=== PATIENT | female | born 1935 | race Caucasian/White ===

== ENCOUNTER 2016-09-11 16:17 | Emergency (ER) | payer MEDICARE, OTHER ==
[~2016-09-11] VITALS: Ht 167.6 cm; Wt 57.0 kg
[2016-09-11 16:46] VITALS: BP 138/110; PULSE 52; RESP 17; TEMP 97.6; O2SAT 96
[2016-09-11 16:55] VITALS: BP 138/110; PULSE 52; RESP 17; TEMP 97.6; O2SAT 96
[2016-09-11 17:02] VITALS: BP 166/78; PULSE 52
--- NOTE | 2016-09-11 17:04 | PD ---
HPI Chief Complaint: Edema Time Seen by Provider: 16:56 Travel History International Travel<30 days: No Contact w/Intl Traveler<30days: No Traveled to known affect area: No History of Present Illness HPI 81- year old female brought in by [facility] for fluid in abdomen. The patient has Alzheimer's and Dementia and does not verbally communicate very much per patient 's daughters. Per [facility] the patient's daughter noticed that patient's stomach was distended. When they called the patient's primary care, they were told to bring her into the ER for further testing. The daughter states the patient has been distended for about a week, and it has been worsening. The daughter states that last night the patient was okay with her touching her stomach, but this morning the patient pushed her away. They report other than her Alzheimer's and Dementia her only other medical condition is hypotension. Prior abdominal surgeries include hysterectomy and appendectomy. Per daughter she is not on any medications and has not had any episodes like this before. The daughters deny that the mother has ever been a smoker. PFSH Past Medical History Dementia: Yes Diminished Hearing: No Musculoskeletal: Yes (CURVATURE OF THE SPINE) Past Surgical History Appendectomy: Yes Hysterectomy: Yes Oral Surgery: Yes (bottom teeth removed ) Social History Alcohol Use: No Tobacco Use: No Substance Use: No Allergies-Medications (Allergen,Severity, Reaction): Coded Allergies: Penicillin (Verified Allergy, Severe, Anaphylaxis, 09/11/16) Reported Meds & Prescriptions Reported Meds & Active Scripts Active No Active Prescriptions or Reported Medications Review of Systems ROS Limitations: Poor Historian, Other: (Alzheimer's and Dementia ) General / Constitutional: No: Fever, Chills, Weight Gain, Weight Loss, Other Eyes: No: Diploplia, Blurred Vision, Photophobia, Drainage, Redness, Foreign Body Sensation, Pain, Tearing, Blind Spots, Visual changes, Blindness, Other HENT: No: Headaches, Vertigo, Lightheadedness, Sore Throat, Rhinitis, Rhinorrhea, Congestion, Nosebleed, Neck Stiffness, Neck Pain, Masses, Gingival Bleeding, Dental Difficulties, Ear Discharge, Earache, Other Cardiovascular: No: Chest Pain or Discomfort, Palpitations, Irregular Rhythm, Tachycardia, Diaphoresis, Syncope, Dyspnea on exertion, Varicosities, Edema, Cyanosis, Varicosities, Phlebitis, Claudication, Other Respiratory: No: Cough, Shortness of Breath, Wheezing, Sneezing, Orthopnea, Hemoptysis, Stridor, Night Sweats, Pleuritic Pain, Other Gastrointestinal: Positive: Abdominal Pain, No: Nausea, Vomiting, Diarrhea, Hematemesis, Hematochezia, Constipation, Changes in Bowel Habits, Indigestion, Dysphagia, Loss of Appetite, Other Genitourinary: No: Urgency, Frequency, Dysuria, Nocturia, Hematuria, Decreased Urinary Output, Oliguria, Hesitancy, Dribbling, Incontinence, Pelvic Pain, Flank Pain, Dyspareunia, Discharge, Dysmenorrhea, Menorrhagia, Metorrhagia, Vaginal Bleeding, Other Musculoskeletal: No: Myalgias, Arthralgias, Limited ROM, Weakness, Cramping, Edema, Pain, Atrophy, Other Skin: No Rash, No Itching, No Dryness, No Lumps, No Hives, No Change in Pigmentation, No Change in nails, No Alopecia, No Lesions, No Breast Lumps, No Breast Tenderness, No Breast Swelling, No Other Neurologic: No: Weakness, Dizziness, Syncope, Focal Abnormalities, Coordination Problem, Tremor, Ataxia, Headache, Change in Mentation, Slurred Speech, Paresthesia, Incontinence, Seizures, Sensory Disturbance, Other Psychiatric: No: Anxiety, Depression, Suicidal Ideations, Disorder of Thought, Mood Disorder, Substance Abuse, Homicidal Ideation, Other Endocrine: No: Heat Intolerance, Cold Intolerance, Polyuria, Polydipsia, Other Hematologic/Lymphatic: No: Easy Bruising, Lymph Node Enlargement, Other Physical Exam Narrative GENERAL: SKIN: Warm and dry. HEAD: Atraumatic. Normocephalic. EYES: Pupils equal and round. No scleral icterus. No injection or drainage. ENT: No nasal bleeding or discharge. Mucous membranes pink and moist. NECK: Trachea midline. No JVD. CARDIOVASCULAR: Regular rate and rhythm. Tongue is midline. No uvula deviation. RESPIRATORY: No accessory muscle use. Clear to auscultation. Breath sounds equal bilaterally. GASTROINTESTINAL: Abdomen distended, hard, non-tender to palpation. Hepatic and splenic margins not palpable. MUSCULOSKELETAL: Extremities without clubbing, cyanosis, or edema. No obvious deformities. NEUROLOGICAL: Awake and alert. No obvious cranial nerve deficits. Motor grossly within normal limits. Five out of 5 muscle strength in the arms and legs. Normal speech. PSYCHIATRIC: Appropriate mood and affect; insight and judgment limited. Data Data Last Documented VS Vital Signs Date Time Temp Pulse Resp B/P Pulse Ox O2 Delivery O2 Flow Rate FiO2 09/11/16 19:05 51 12 145/67 99 Room Air 09/11/16 16:55 97.6 Orders Complete Blood Count With Diff (09/11/16 16:48) Comprehensive Metabolic Panel (09/11/16 16:48) Lipase (09/11/16 16:48) Lactic Acid (09/11/16 16:48) Prothrombin Time / Inr (Pt) (09/11/16 16:48) Act Partial Throm Time (Ptt) (09/11/16 16:48) Urinalysis - C+S If Indicated (09/11/16 16:48) Iv Access Insert/Monitor (09/11/16 16:48) Ecg Monitoring (09/11/16 16:48) Ammonia (09/11/16 16:48) Ct Abd/Pel W Iv Contrast(Rout) (09/11/16 ) Cath For Specimen (09/11/16 17:04) Urinary Catheter Insert/Apply (09/11/16 17:28) Sodium Chlor 0.9% 1000 Ml Inj (Ns 1000 M (09/11/16 18:28) Labs Laboratory Tests Test 09/11/16 17:13 White Blood Count 6.6 TH/MM3 Red Blood Count 4.66 MIL/MM3 Hemoglobin 10.9 GM/DL Hematocrit 33.4 % Mean Corpuscular Volume 71.8 FL Mean Corpuscular Hemoglobin 23.4 PG Mean Corpuscular Hemoglobin 32.6 % Concent Red Cell Distribution Width 14.8 % Platelet Count 139 TH/MM3 Mean Platelet Volume 10.1 FL Neutrophils (%) (Auto) 71.5 % Lymphocytes (%) (Auto) 19.1 % Monocytes (%) (Auto) 8.2 % Eosinophils (%) (Auto) 0.5 % Basophils (%) (Auto) 0.7 % Neutrophils # (Auto) 4.7 TH/MM3 Lymphocytes # (Auto) 1.3 TH/MM3 Monocytes # (Auto) 0.5 TH/MM3 Eosinophils # (Auto) 0.0 TH/MM3 Basophils # (Auto) 0.0 TH/MM3 CBC Comment DIFF FINAL Differential Comment Prothrombin Time 10.7 SEC Prothromb Time International 1.0 RATIO Ratio Activated Partial 29.6 SEC Thromboplast Time Urine Color YELLOW Urine Turbidity CLEAR Urine pH 6.0 Urine Specific [place] 1.006 Urine Protein NEG mg/dL Urine Glucose (UA) NEG mg/dL Urine Ketones NEG mg/dL Urine Occult Blood NEG Urine Nitrite NEG Urine Bilirubin NEG Urine Urobilinogen LESS THAN 2.0 MG/DL Urine Leukocyte Esterase NEG Urine WBC LESS THAN 1 /hpf Microscopic Urinalysis Comment CULT NOT INDICATED Sodium Level 130 MEQ/L Potassium Level 4.2 MEQ/L Chloride Level 95 MEQ/L Carbon Dioxide Level 28.7 MEQ/L Anion Gap 6 MEQ/L Blood Urea Nitrogen 11 MG/DL Creatinine 0.54 MG/DL Estimat Glomerular Filtration 108 ML/MIN Rate Random Glucose 146 MG/DL Lactic Acid Level 1.5 mmol/L Calcium Level 8.5 MG/DL Total Bilirubin 0.5 MG/DL Aspartate Amino Transf 14 U/L (AST/SGOT) Alanine Aminotransferase 10 U/L (ALT/SGPT) Alkaline Phosphatase 63 U/L Ammonia LESS THAN 10 MCMOL/L Total Protein 6.7 GM/DL Albumin 3.5 GM/DL Lipase 123 U/L [facility] Medical Decision Making Medical Screen Exam Complete: Yes Emergency Medical Condition: Yes Medical Record Reviewed: Yes Interpretation(s) CBC & BMP Diagram 09/11/16 17:13 LFTs and lipase WNL Last Impressions Abdomen/Pelvis CT 09/11/16 0000 Signed Impressions: Service Date/Time: Sunday, September 11, 2016 20:24 - CONCLUSION: 1. Prominent amount of stool in the rectum, distended to over 10 cm in length suggesting possible fecal impaction. There is also stool scattered throughout the remainder of the colon. No dilated loops of small bowel. 2. Abnormal appearance to the floor on the left side with lobular masslike pleural thickening and irregular enhancement. 3. Small right pleural effusion. 4. Marked dilation of the left kidney collecting system and extrarenal pelvis. There are no calcified stones seen. Symmetric nephrogram. Cannot exclude renal obstruction. Recommend followup assessment after the fecal impaction resolves. 5. Abnormal appearance to the lesser sac with both free fluid and an elongated area of fluid with enhancing wall. Sergei Jonas MD Differential Diagnosis Ascites Obstruction Abdominal mass Narrative Course 81-year-old female that presents to the ED for evaluation of abdominal distention. Patient was properly examined and was found to have signs and symptoms which appear to be unclear etiology. Patient was put on a urinary catheter and she had about 1 L of fluid coming out. Connolly was placed and she has another liter come out. Complete resolution of the abdominal distention noted. Imaging and labs were ordered after my attending recommended imaging. Imaging did show what appears to be a fecal impaction. Case was discussed with my attending Dr. Uriostegui who recommended trial of fecal disimpaction. After explained this to the family and patient and they agreed to it fecal disimpaction was done by me with minimal stool obtained. Does appear to be hard but not completely hard for the patient not pass it. At this time I recommend trial of MiraLAX and enemas [id number]. Family is very aware of this and they agree with using this. At this time patient will be allowed to keep the Connolly and I recommend in 2 days to come back to get the Connolly removed. Patient and family agree with this. Patient was sent home with prescription for Bactrim for infection prophylaxis. Patient was given prescription for MiraLAX as well. Close follow-up with PCP. See ED worsening symptoms. Diagnosis Primary Impression: Acute urinary retention Additional Impression: Fecal impaction in rectum Patient Instructions: General Instructions Additional Instructions: Take medication as prescribed. Follow with PCP. See ED for worsening symptoms. Use an [id number] to help with the impaction. Med/Other Pt SpecificInfo: Prescription(s) given Scripts No Active Prescriptions or Reported Meds Disposition: 01 DISCHARGE HOME Condition: Stable Berto Flores Sep 11, 2016 17:04
[2016-09-11 17:45] LABS: AUTOMATED NEUTROPHIL # 4.7 TH/MM3 (1.8-7.7); BASOPHIL % 0.7 % (0.0-2.0); EOSINOPHIL % 0.5 % (0.0-4.0); HEMATOCRIT 33.4 % (35.0-46.0); HEMO FLAGS DIFF FINAL; LYMPH % 19.1 % (9.0-44.0); LYMPHOCYTE # 1.3 TH/MM3 (1.0-4.8); MEAN CELL VOLUME 71.8 FL (80.0-100.0); MEAN CORPUSCULAR HEMOGLOBIN 23.4 PG (27.0-34.0); MEAN CORPUSCULAR HGB CONC 32.6 % (32.0-36.0); MONO % 8.2 % (0.0-8.0); NEUT % 71.5 % (16.0-70.0); PLATELET COUNT 139 TH/MM3 (150-450); RED BLOOD COUNT 4.66 MIL/MM3 (4.00-5.30); RED CELL DISTRIBUTION WIDTH 14.8 % (11.6-17.2); WHITE BLOOD COUNT 6.6 TH/MM3 (4.0-11.0)
[2016-09-11 17:51] LABS: APTT (PATIENT) 29.6 SEC (24.3-30.1); PROTHROMBIN TIME - PATIENT 10.7 SEC (9.8-11.6)
[2016-09-11 18:06] LABS: ANION GAP 6 MEQ/L (5-15); AST (GOT) 14 U/L (15-37); BICARBONATE 28.7 MEQ/L (21.0-32.0); BLOOD UREA NITROGEN 11 MG/DL (7-18); CHLORIDE 95 MEQ/L (98-107); GLOMERULAR FILTRATION RATE 108 ML/MIN (>89); POTASSIUM 4.2 MEQ/L (3.5-5.1); SODIUM (NA) 130 MEQ/L (136-145)
[2016-09-11 18:07] LABS: ALT (GPT) 10 U/L (10-53)
[2016-09-11 18:09] LABS: BLOOD, URINE NEG (NEG); COMMENT (UR) CULT NOT INDICATED; CULTURE IF INDICATED CULT NOT INDICATED; GLUCOSE,URINE NEG (NEG); KETONE, URINE NEG (NEG); NITRITE,URINE NEG (NEG); URINE COLOR YELLOW (YELLW/STRAW)
[2016-09-11 18:10] LABS: ALKALINE PHOSPHATASE 63 U/L (45-117); TOTAL BILIRUBIN ADULT 0.5 MG/DL (0.2-1.0)
[2016-09-11] MEDS ORDERED: SODIUM CHLOR 0.9% 1000 ML INJ 1,000 ML IV SCH (18:28)
[2016-09-11 19:05] VITALS: BP 145/67; PULSE 51; RESP 12; O2SAT 99
[2016-09-11] MEDS ORDERED: IOHEXOL 350 MG/ML 10 ML VIAL (for RAD DIAG) IV ONE (20:24)
--- NOTE | 2016-09-11 21:12 | RADRPT ---
EXAM DATE/TIME: 09/11/2016 20:24 [facility] COMPARISON: No previous studies available for comparison. INDICATIONS : Abdominal pain. IV CONTRAST: 85 cc Omnipaque 350 (iohexol) IV ORAL CONTRAST: No oral contrast ingested. RADIATION DOSE: 6.64 CTDIvol (mGy) MEDICAL HISTORY : Dementia. SURGICAL HISTORY : Appendectomy. Hysterectomy. ENCOUNTER: Initial ACUITY: 1 day PAIN SCALE: Non-responsive LOCATION: abdomen TECHNIQUE: Volumetric scanning of the abdomen and pelvis was performed. Using automated exposure control and ad justment of the mA and/or kV according to patient size, radiation dose was kept as low as reasonably achievable to obtain optimal diagnostic quality images. DICOM format image data is available electro nically for review and comparison. FINDINGS: LOWER LUNGS: Small right pleural effusion and compressive atelectasis of the adjacent lung. Abnormal appearance t o the pleura in the left lower chest with lobular areas of pleural thickening measuring up to 1.9 cm and having a heterogeneous pattern of enhancement. No infiltrates seen in the left lower lobe. LIVER: Homogeneous density without lesion. There is no dilation of the biliary tree. No calcified gallston es. SPLEEN: Normal size without lesion. PANCREAS: The pancreas appears grossly intact. However, there is a prominent amount of fluid in the anterior p ararenal space and, as seen on image #23, a focal fluid collection which measures 2.8 x 1.1 cm locate d within the lesser sac. KIDNEYS: Symmetric enhancement in the parenchyma of both kidneys. No calcified stones on either side. There is marked prominence of the collecting system an extrarenal pelvis on the left side. The ureter willie ot be followed distal to the level of L2. There is a cortical cyst exophytic from the upper pole lef t kidney measuring 3.5 cm. ADRENAL GLANDS: Within normal limits. VASCULAR: There is no aortic aneurysm. BOWEL/MESENTERY: There is a prominent amount of stool in the rectum with the rectum measuring in excess of 10 cm in wi dth. There is only a mild amount of stool seen throughout the left colon, moderate in the transverse colon, and moderate in the right colon. No dilated loops of small bowel seen. ABDOMINAL WALL: Within normal limits. RETROPERITONEUM: There is no lymphadenopathy. BLADDER: Connolly catheter within nondistended urinary bladder. The urinary bladder is displaced anterior and leal prapubic probably due to the fecal impaction. REPRODUCTIVE: Within normal limits. INGUINAL: There is no lymphadenopathy or hernia. MUSCULOSKELETAL: Diffuse osteopenia. CONCLUSION: 1. Prominent amount of stool in the rectum, distended to over 10 cm in length suggesting possible fec al impaction. There is also stool scattered throughout the remainder of the colon. No dilated loops of small bowel. 2. Abnormal appearance to the floor on the left side with lobular masslike pleural thickening and irr egular enhancement. 3. Small right pleural effusion. 4. Marked dilation of the left kidney collecting system and extrarenal pelvis. There are no calcifie d stones seen. Symmetric nephrogram. Cannot exclude renal obstruction. Recommend followup assessme nt after the fecal impaction resolves. 5. Abnormal appearance to the lesser sac with both free fluid and an elongated area of fluid with enh ancing wall. Sergei Jonas MD on September 11, 2016 at 21:02 Board Certified Radiologist. This report was verified electronically.
[2016-09-11] MEDS ORDERED: MIRA3350 PO (21:47)
[2016-09-11] MEDS ORDERED: BACT800T5 PO (21:47)
[2016-09-11 22:07] VITALS: BP 154/74
== END 2016-09-11 23:02 | disposition home or self-care (01) ==
LOC: NEPC 16:17
DX: R33.8 Other retention of urine (principal); K56.41 Fecal impaction; G30.9 Alzheimer's disease, unspecified; F02.80 Dementia in other diseases classified elsewhere, unspecified severity, without behavioral disturbance, psychotic disturbance, mood disturbance, and anxiety
CPT/HCPCS: 51702; 74177; 80053; 81001; 82140; 83605; 83690; 85025; 85610; 85730; 96360; 99285; J7030; Q9967

== ENCOUNTER 2017-02-17 10:11 | Inpatient (IN) | payer MEDICARE ==
[~2017-02-17 10:11] MED LIST: BACT800T5 PO; MIRA3350 PO
[2017-02-17 10:31] VITALS: BP 136/81; PULSE 61; RESP 16; TEMP 98.6; O2SAT 99
[2017-02-17 12:10] LABS: AUTOMATED NEUTROPHIL # 3.8 TH/MM3 (1.8-7.7); BASOPHIL % 0.6 % (0.0-2.0); EOSINOPHIL % 0.6 % (0.0-4.0); HEMATOCRIT 33.6 % (35.0-46.0); HEMOGLOBIN 10.9 GM/DL (11.6-15.3); LYMPH % 23.6 % (9.0-44.0); LYMPHOCYTE # 1.3 TH/MM3 (1.0-4.8); MEAN CELL VOLUME 73.6 FL (80.0-100.0); MEAN CORPUSCULAR HGB CONC 32.6 % (32.0-36.0); MEAN PLATELET VOLUME 10.6 FL (7.0-11.0); MONO % 6.9 % (0.0-8.0); MONOCYTE # 0.4 TH/MM3 (0-0.9); NEUT % 68.3 % (16.0-70.0); PLATELET COUNT 189 TH/MM3 (150-450); RED BLOOD COUNT 4.56 MIL/MM3 (4.00-5.30); RED CELL DISTRIBUTION WIDTH 13.6 % (11.6-17.2); WHITE BLOOD COUNT 5.6 TH/MM3 (4.0-11.0)
[2017-02-17] MEDS ORDERED: SODIUM CHLORID 0.9% 500 ML INJ 500 ML IV ONE (12:15)
--- NOTE | 2017-02-17 12:15 | PD ---
HPI Chief Complaint: Altered Mental Status Time Seen by Provider: 11:13 Travel History International Travel<30 days: No Contact w/Intl Traveler<30days: No Traveled to known affect area: No History of Present Illness HPI 81-year-old female that presents to the ED for evaluation of altered mental status. Patient has a chronic history of dementia and is normally confused but per family members and and was reported she's been more confused lately. She has a Connolly catheter and then noticed that the urine has been darker and our smell to it. Patient comes here to get evaluated. Patient herself cannot give me any history. She for the most part answers by moans and doesn't really say much. She does have a significant history of dementia has been here in the past for similar. Per family are concerned more about possible UTI. No signs of fall or injury. Again history is limited because patient is not a good historian. Family portion at the time of evaluation is not bedsides some most of the history was obtained from ED nurse to obtain report from ambulance report to provided familys report. Patient denies any pain and denies any acute abnormality. Unclear as to the length of symptoms that appear to have worsened today. PFSH Past Medical History Dementia: Yes Diminished Hearing: No Musculoskeletal: Yes (CURVATURE OF THE SPINE) : 5 Para: 4 Miscarriage: 1 Past Surgical History Appendectomy: Yes Hysterectomy: Yes Oral Surgery: Yes (bottom teeth removed ) Social History Alcohol Use: No Tobacco Use: No Substance Use: No Allergies-Medications (Allergen,Severity, Reaction): Coded Allergies: penicillin G (Unverified Allergy, Severe, Anaphylaxis, 02/17/17) Reported Meds & Prescriptions Reported Meds & Active Scripts Active Miralax Powder (Polyethylene Glycol 3350 Powder) 17 Gm Powd 17 Gm PO DAILY Mix and dissolve one measuring cap-ful (17 grams) in water or juice. Bactrim DS (Sulfamethoxazole-Trimethoprim) 800-160 Mg Tab 1 Tab PO BID 7 Days Review of Systems ROS Limitations: Altered Mental Status, Poor Historian Except as stated in HPI: all other systems reviewed are Neg Physical Exam Exam Limitations: Altered Mental Status, Poor Historian Narrative GENERAL: SKIN: Warm and dry. HEAD: Atraumatic. Normocephalic. EYES: Pupils equal and round 4 mm reactive to light and accommodation. No scleral icterus. No injection or drainage. ENT: No nasal bleeding or discharge. Mucous membranes pink and moist. Tongue is midline. No uvula deviation. NECK: Trachea midline. No JVD. CARDIOVASCULAR: Regular rate and rhythm. No murmurs, S3, S4. RESPIRATORY: No accessory muscle use. Clear to auscultation. Breath sounds equal bilaterally. GASTROINTESTINAL: Abdomen soft, non-tender, nondistended. Hepatic and splenic margins not palpable. MUSCULOSKELETAL: Extremities without clubbing, cyanosis, or edema. No obvious deformities. Full range of motion of the upper and lower extremities bilaterally. 2+ pulses bilaterally. NEUROLOGICAL: Awake and alert and orientation to person. No obvious cranial nerve deficits. Motor grossly within normal limits. Five out of 5 muscle strength in the arms and legs. Normal speech. PSYCHIATRIC: Demented/Altered mood and affect; insight and judgment minimal. Data Data Last Documented VS Vital Signs Date Time Temp Pulse Resp B/P (MAP) Pulse Ox O2 Delivery O2 Flow Rate FiO2 02/17/17 10:31 98.6 61 16 136/81 (99) 99 Orders Orders Complete Blood Count With Diff (02/17/17 11:13) Comprehensive Metabolic Panel (02/17/17 11:13) Lactic Acid (02/17/17 11:13) Urinalysis - C+S If Indicated (02/17/17 11:13) Iv Access Insert/Monitor (02/17/17 11:13) Ecg Monitoring (02/17/17 11:13) Ct Brain W/O Iv Contrast(Rout) (02/17/17 ) Blood Culture (02/17/17 12:10) Sodium Chlorid 0.9% 500 Ml Inj (Ns 500 M (02/17/17 12:15) Admit Order (Ed Use Only) (02/17/17 13:59) Labs Laboratory Tests Test 02/17/17 11:25 White Blood Count 5.6 TH/MM3 Red Blood Count 4.56 MIL/MM3 Hemoglobin 10.9 GM/DL Hematocrit 33.6 % Mean Corpuscular Volume 73.6 FL Mean Corpuscular Hemoglobin 24.0 PG Mean Corpuscular Hemoglobin Concent 32.6 % Red Cell Distribution Width 13.6 % Platelet Count 189 TH/MM3 Mean Platelet Volume 10.6 FL Neutrophils (%) (Auto) 68.3 % Lymphocytes (%) (Auto) 23.6 % Monocytes (%) (Auto) 6.9 % Eosinophils (%) (Auto) 0.6 % Basophils (%) (Auto) 0.6 % Neutrophils # (Auto) 3.8 TH/MM3 Lymphocytes # (Auto) 1.3 TH/MM3 Monocytes # (Auto) 0.4 TH/MM3 Eosinophils # (Auto) 0.0 TH/MM3 Basophils # (Auto) 0.0 TH/MM3 CBC Comment DIFF FINAL Differential Comment Blood Urea Nitrogen 7 MG/DL Creatinine 0.44 MG/DL Random Glucose 100 MG/DL Total Protein 6.2 GM/DL Albumin 3.2 GM/DL Calcium Level 8.2 MG/DL Alkaline Phosphatase 66 U/L Aspartate Amino Transf (AST/SGOT) 24 U/L Alanine Aminotransferase (ALT/SGPT) 12 U/L Total Bilirubin 1.0 MG/DL Sodium Level 119 MEQ/L Potassium Level 4.6 MEQ/L Chloride Level 85 MEQ/L Carbon Dioxide Level 26.2 MEQ/L Anion Gap 8 MEQ/L Estimat Glomerular Filtration Rate 137 ML/MIN Lactic Acid Level 1.2 mmol/L MDM Medical Decision Making Medical Screen Exam Complete: Yes Emergency Medical Condition: Yes Medical Record Reviewed: Yes Interpretation(s) CBC & BMP Diagram 02/17/17 11:25 Total Protein 6.2 L, Albumin 3.2 L, Calcium Level 8.2 L, Alkaline Phosphatase 66 , Aspartate Amino Transf (AST/SGOT) 24, Alanine Aminotransferase (ALT/SGPT) 12, Total Bilirubin 1.[address] 02/17/17 0000 Signed Impressions: Service Date/Time: Friday, February 17, 2017 12:06 - CONCLUSION: Atrophy otherwise negative . Trino Gaspar MD FACR Differential Diagnosis Altered mental status versus UTI versus sepsis versus CVA versus electrolyte abnormality versus worsening dementia versus dementia Narrative Course 81-year-old female that presents to the ED for evaluation of altered mental status. Patient was properly examined and was found to have signs and symptoms consistent appears to be altered mental status versus dementia. Possible UTI noted. Labs and imaging were ordered. Patient unfortunately is not good historian is no family at bedside for me to obtain any history. Most of the history is obtained from ED nurse obtained the report from the ambulance. She does appear to have significant dementia and possible alteration. Because of this altered mental status workup was done. Labs and imaging positive for hyponatremia. UA not done yet secondary to patient being at the [place] where there is no privacy for the patient to change urinary catheter. Likely infected from the look of urine on the bag. Case discussed with my attending who recommends we admit the patient. Case discussed with Dr Bolaños who agrees to admission. Diagnosis Primary Impression: Acute hyponatremia Additional Impressions: UTI (urinary tract infection) Qualified Codes: N30.00 - Acute cystitis without hematuria Altered mental status Qualified Codes: R41.82 - Altered mental status, unspecified Admitting Information Admitting Physician Requests: Admit Berto Flores Feb 17, 2017 12:15
--- NOTE | 2017-02-17 12:16 | RADRPT ---
EXAM DATE/TIME: 02/17/2017 12:06 [facility] COMPARISON: No previous studies available for comparison. INDICATIONS : Increased confusion RADIATION DOSE: 35.96 CTDIvol (mGy) MEDICAL HISTORY : Dementia. SURGICAL HISTORY : Hysterectomy. ENCOUNTER: Initial ACUITY: 1 day PAIN SCALE: Non-responsive LOCATION: cranial TECHNIQUE: Multiple contiguous axial images were obtained of the head. Using automated exposure control and adj ustment of the mA and/or kV according to patient size, radiation dose was kept as low as reasonably a chievable to obtain optimal diagnostic quality images. DICOM format image data is available electro nically for review and comparison. FINDINGS: SUPERTENTORIUM; There is moderate central and cortical atrophy with dilatation of the ventricular and sulcal spaces. There is no parenchymal hemorrhage, midline shift, mass lesion, or acute infarct ion. No extra-axial fluid collections are seen. POSTERIOR FOSSA: The cerebellum and brainstem are intact. The 4th ventricle is midline. The cerebellopontine angle i s unremarkable. ORBITS/SINUS The visualized portion of the orbits is intact. There is no sinus disease. SKULL: No evidence of skull fracture. CONCLUSION: Atrophy otherwise negative . Trino Gaspar MD FACR on February 17, 2017 at 12:12 Board Certified Radiologist. This report was verified electronically.
[2017-02-17 12:55] LABS: ALBUMIN 3.2 GM/DL (3.4-5.0); ALKALINE PHOSPHATASE 66 U/L (45-117); ALT (GPT) 12 U/L (10-53); AST (GOT) 24 U/L (15-37); BICARBONATE 26.2 MEQ/L (21.0-32.0); BLOOD UREA NITROGEN 7 MG/DL (7-18); CALCIUM 8.2 MG/DL (8.5-10.1); CHLORIDE 85 MEQ/L (98-107); CREATININE 0.44 MG/DL (0.50-1.00); GLOMERULAR FILTRATION RATE 137 ML/MIN (>89); GLUCOSE,RANDOM 100 MG/DL (74-106); TOTAL PROTEIN 6.2 GM/DL (6.4-8.2)
[2017-02-17 12:56] LABS: SODIUM (NA) 119 MEQ/L (136-145)
[2017-02-17 14:51] VITALS: BP 141/70; PULSE 54; RESP 18; O2SAT 97
--- NOTE | 2017-02-17 15:13 | HHI.HP ---
HPI Service CP Hospitalists Primary Care Physician Unknown Admission Diagnosis acute hyonatremia, AMS with UTI Chief Complaint: ams Travel History International Travel<30 Days: No Contact w/Intl Traveler <30 Da: No Traveled to Known Affected Are: No History of Present Illness Pt is 81 yo with advanced dementia brought in by family for apparently more confusion and dark/foul smelling urine. No family at bedside and no answer when calling the number on chart. Review of records shows ED visit 09/24 for urine retention and fecal impaction. Charts shows insertion of tapia at that time and script for miralax and bactrim. Apparently the pt has had a tapia since that time but it's unclear if has been changed. She is demented, unable to provide hx and appears in no distress. She is hyponatremic to 119. Review of Systems Other more confused with foul dark urine in tapia per report given to ED. Past Family Social History Past Medical History dementia urine retention/fecal impaction tapia since 09/24 appe/hysterectomy per records Reported Medications apparently none [facility]cp records reviewed also Allergies: Coded Allergies: penicillin G (Unverified Allergy, Severe, Anaphylaxis, 02/17/17) Family History nc Social History no etoh/tob Physical Exam Vital Signs nad awake no labored breathing demented. occasionally follows commands urine yellow. tapia abd s/nt/bs ext no edema Vital Signs Date Time Temp Pulse Resp B/P (MAP) Pulse Ox O2 Delivery O2 Flow Rate FiO2 02/17/17 14:51 54 18 141/70 (93) 97 Room Air 02/17/17 10:31 98.6 61 16 136/81 (99) 99 Laboratory Laboratory Tests Test 02/17/17 11:25 White Blood Count 5.6 Red Blood Count 4.56 Hemoglobin 10.9 Hematocrit 33.6 Mean Corpuscular Volume 73.6 Mean Corpuscular Hemoglobin 24.0 Mean Corpuscular Hemoglobin Concent 32.6 Red Cell Distribution Width 13.6 Platelet Count 189 Mean Platelet Volume 10.6 Neutrophils (%) (Auto) 68.3 Lymphocytes (%) (Auto) 23.6 Monocytes (%) (Auto) 6.9 Eosinophils (%) (Auto) 0.6 Basophils (%) (Auto) 0.6 Neutrophils # (Auto) 3.8 Lymphocytes # (Auto) 1.3 Monocytes # (Auto) 0.4 Eosinophils # (Auto) 0.0 Basophils # (Auto) 0.0 CBC Comment DIFF FINAL Differential Comment Blood Urea Nitrogen 7 Creatinine 0.44 Random Glucose 100 Total Protein 6.2 Albumin 3.2 Calcium Level 8.2 Alkaline Phosphatase 66 Aspartate Amino Transf (AST/SGOT) 24 Alanine Aminotransferase (ALT/SGPT) 12 Total Bilirubin 1.0 Sodium Level 119 Potassium Level 4.6 Chloride Level 85 Carbon Dioxide Level 26.2 Anion Gap 8 Estimat Glomerular Filtration Rate 137 Lactic Acid Level 1.2 Result Diagram: 02/17/17 1125 02/17/17 112 Caprini VTE Risk Assessment Caprini VTE Risk Assessment: Mod/High Risk (score >= 2) Caprini Risk Assessment Model Point Value = 1 Point Value = 2 Point Value = 3 Point Value = 5 Age 41-60 Minor surgery BMI > 25 kg/m2 Swollen legs Varicose veins or History of unexplained or recurrent spontaneous Oral contraceptives or hormone replacement Sepsis (< 1 month) Serious lung disease, including pneumonia (< 1 month) Abnormal pulmonary function Acute myocardial infarction Congestive heart failure (< 1 month) History of inflammatory bowel disease Medical patient at bed rest Age 61-74 Arthroscopic surgery Major open surgery (> 45 min) Laparoscopic surgery (> 45 min) Malignancy Confined to bed (> 72 hours) Immobilizing plaster cast Central venous access Age >= 75 History of VTE Family history of VTE Factor V Leiden Prothrombin [id number] Lupus anticoagulant Anticardiolipin antibodies Elevated serum homocysteine Heparin-induced thrombocytopenia Other congenital or acquired thrombophilia Stroke (< 1 month) Elective arthroplasty Hip, pelvis, or leg fracture Acute spinal cord injury (< 1 month) Prophylaxis Regimen Total Risk Factor Score Risk Level Prophylaxis Regimen 0-1 Low Early ambulation 2 Moderate Order ONE of the following: *Sequential Compression Device (SCD) *Heparin 5000 units SQ BID 3-4 Higher Order ONE of the following medications: *Heparin 5000 units SQ TID *Enoxaparin/Lovenox 40 mg SQ daily (WT < 150 kg, CrCl > 30 mL/min) *Enoxaparin/Lovenox 30 mg SQ daily (WT < 150 kg, CrCl > 10-29 mL/min) *Enoxaparin/Lovenox 30 mg SQ BID (WT < 150 kg, CrCl > 30 mL/min) AND/OR *Sequential Compression Device (SCD) 5 or more Highest Order ONE of the following medications: *Heparin 5000 units SQ TID (Preferred with Epidurals) *Enoxaparin/Lovenox 40 mg SQ daily (WT < 150 kg, CrCl > 30 mL/min) *Enoxaparin/Lovenox 30 mg SQ daily (WT < 150 kg, CrCl > 10-29 mL/min) *Enoxaparin/Lovenox 30 mg SQ BID (WT < 150 kg, CrCl > 30 mL/min) AND *Sequential Compression Device (SCD) Assessment and Plan Problem List: (1) Acute hyponatremia ICD Codes: E87.1 - Hypo-osmolality and hyponatremia Status: Acute Plan: 1. acute delirium superimposed upon severe dementia 2. hyponatremia. probably related to volume depletion 3. urine retention 1L in 09/24...tapia placed at that time and unclear if has been indwelling since then or even changed will exclude uti. 4. fecal impaction was noted in 09/24...probably causing urine retention. unclear if she is still impacted. addendum: called by RN. stage 2 coccyx pressure ulcer. chronic appearing and family was aware. will have tapia changed and then decide if any infection present gentle slow correction of her hyponatremia. unknown the length of time she has been hyponatremic. NS and recheck bmp kub to assess ongoing fecal impaction. If so then enema. called family contact listed. no answer. CM consult to assist with dispo in 1-2 days..[facility] vs snf dvt prophylaxis PT eval (2) Altered mental status ICD Codes: R41.82 - Altered mental status, unspecified Status: Acute (3) Urine retention ICD Codes: R33.9 - Retention of urine, unspecified Status: Chronic (4) Dementia ICD Codes: F03.90 - Unspecified dementia without behavioral disturbance Status: Chronic Physician Certification 2 Midnight Certification Type: Admission for Inpatient Services Order for Inpatient Services 3The services are ordered in accordance with Medicare regulations or non- Medicare payer requirements, as applicable. In the case of services not specified as inpatient-only, they are appropriately provided as inpatient services in accordance with the 2-midnight benchmark. Estimated LOS (days): 3 3 days is the estimated time the patient will need to remain in the hospital, assuming treatment plan goals are met and no additional complications. Post-Hospital Plan: Not yet determined Problem Qualifiers (1) Altered mental status: Qualified Codes: R41.82 - Altered mental status, unspecified Mert Cox MD Feb 17, 2017 15:13
--- NOTE | 2017-02-17 15:39 | RADRPT ---
EXAM DATE/TIME: 02/17/2017 15:26 [place] COMPARISON: No previous studies available for comparison. INDICATIONS : Constipation MEDICAL HISTORY : Dementia SURGICAL HISTORY : Appendectomy. Hysterectomy ENCOUNTER: Initial ACUITY: 1 day PAIN SCORE: Non-responsive. LOCATION: Bilateral abdomen FINDINGS: Moderate stool in the ascending and transverse colon. Minimal dilated mid to distal small bowel. De generative changes lumbar spine. No free air. CONCLUSION: Minimal stool as above mostly ascending colon. Trino Gaspar MD FACR on February 17, 2017 at 15:36 Board Certified Radiologist. This report was verified electronically.
[2017-02-17 15:41] LABS: BACTERIA, URINE MANY /hpf; BILIRUBIN, URINE NEG (NEG); BLOOD, URINE TRACE (NEG); GLUCOSE,URINE NEG (NEG); KETONE, URINE TRACE mg/dL (NEG); NITRITE,URINE POS (NEG); PH, URINE 6.5 (5.0-8.5); SQUAMOUS EPITHELIAL CELL URINE 2 /hpf (0-5); URINE COLOR LIGHT-YELLOW (YELLW/STRAW); URINE LEUKOCYTE ESTERASE LARGE (NEG); WHITE BLOOD CELL CLUMPS RARE
[2017-02-17] MEDS ORDERED: ACETAMINOPHEN 325 MG TAB PO PRN (16:00)
[2017-02-17] MEDS ORDERED: ONDANSETRON HCL 4 MG/2 ML VIAL IV PUSH PRN (16:00)
[2017-02-17] MEDS: SODIUM CHLOR 0.9% 1000 ML INJ 1,000 ML IV SCH (16:11)
[2017-02-17 16:20] VITALS: BP 119/61; PULSE 55; RESP 19; O2SAT 98
[2017-02-17] MEDS ORDERED: LACTULOSE SYRUP 20 GM/30 ML CUP PO ONE (17:00)
[2017-02-17] MEDS ORDERED: SOD PHOSPHATE/SOD BIPHOSPHATE (ADULT) ENEMA 133ML RECTAL ONE (17:00)
[2017-02-17 17:42] VITALS: BP 130/64; PULSE 51; RESP 18; TEMP 97.3; O2SAT 98
[2017-02-17] MEDS: LEVOFLOXACIN 250 MG PREMIX INJ 50 ML IV SCH (20:29)
[2017-02-17] MEDS: DOCUSATE SODIUM 100 MG CAP PO SCH (20:29)
[2017-02-17 20:30] VITALS: BP 117/66; PULSE 58; RESP 17; TEMP 98.8; O2SAT 98
[2017-02-17 21:11] LABS: BICARBONATE 21.4 MEQ/L (21.0-32.0); CALCIUM 8.3 MG/DL (8.5-10.1); CREATININE 0.51 MG/DL (0.50-1.00)
[2017-02-17 22:50] VITALS: PULSE 46
[2017-02-17] MEDS: SODIUM CHLORIDE 1 GRAM TAB PO SCH (22:50)
[2017-02-18] VITALS (8 sets, daily range): BP systolic 89–105; BP diastolic 53–59; PULSE 58–68; RESP 17–18; TEMP 97.4–98.9; O2SAT 96–98
[2017-02-18] MEDS: SODIUM CHLOR 0.9% 1000 ML INJ 1,000 ML IV SCH ×3 (06:15→20:16)
[2017-02-18 07:38] LABS: BICARBONATE 22.4 MEQ/L (21.0-32.0); CALCIUM 7.7 MG/DL (8.5-10.1); CREATININE 0.28 MG/DL (0.50-1.00)
[2017-02-18] MEDS: SODIUM CHLORIDE 1 GRAM TAB PO SCH ×2 (08:17→20:26)
[2017-02-18] MEDS: DOCUSATE SODIUM 100 MG CAP PO SCH ×2 (08:17→20:12)
--- NOTE | 2017-02-18 09:34 | HHI.PR ---
Subjective Remarks looks more alert trying to eat breakfast daughter at bedside Objective Vitals heart reg lung cta abd s/nt ext no edema tapia...cloudy urine Vital Signs Date Time Temp Pulse Resp B/P (MAP) Pulse Ox O2 Delivery O2 Flow Rate FiO2 02/18/17 08:43 98.4 66 18 98/55 (69) 97 02/18/17 05:00 98.9 65 17 104/58 (73) 98 02/18/17 01:08 98.9 62 17 104/59 (74) 98 02/17/17 22:50 46 02/17/17 20:30 98.8 58 17 117/66 (83) 98 02/17/17 17:42 97.3 51 18 130/64 (86) 98 02/17/17 16:38 02/17/17 16:20 55 19 119/61 (80) 98 Room Air 02/17/17 14:51 54 18 141/70 (93) 97 Room Air 02/17/17 10:31 98.6 61 16 136/81 (99) 99 Result Diagram: 02/17/17 1125 02/18/17 0559 A/P Problem List: (1) Acute hyponatremia ICD Codes: E87.1 - Hypo-osmolality and hyponatremia Status: Acute Plan: 1. acute delirium superimposed upon severe dementia 2. hyponatremia. probably related to volume depletion 3. urine retention 1L in 09/24...tapia placed at that time . I spoke to daughter and she says they follow with Dr [facility] and get tapia changed each month. 4. fecal impaction was noted in 09/24...probably causing urine retention. daughter says she deals with chronic constipation multiple bm's here with laxatives. addendum: called by RN. stage 2 coccyx pressure ulcer. chronic appearing and family was aware. tapia changed gentle slow correction of her hyponatremia. NS and recheck bmp cont abx and f/u urine cx long talk with daughter...she is not ready to take her home...will continue to correct the na and f/u urine cx before d/c...but she will ultimately take her home dvt prophylaxis PT eval (2) Altered mental status ICD Codes: R41.82 - Altered mental status, unspecified Status: Acute (3) Urine retention ICD Codes: R33.9 - Retention of urine, unspecified Status: Chronic (4) Dementia ICD Codes: F03.90 - Unspecified dementia without behavioral disturbance Status: Chronic Problem Qualifiers (1) Altered mental status: Qualified Codes: R41.82 - Altered mental status, unspecified Mert Cox MD Feb 18, 2017 09:34
[2017-02-18] MEDS: LEVOFLOXACIN 250 MG PREMIX INJ 50 ML IV SCH (20:11)
[2017-02-19] VITALS (9 sets, daily range): BP systolic 103–114; BP diastolic 54–59; PULSE 52–64; RESP 16–18; TEMP 97.4–98.6; O2SAT 94–100
[2017-02-19] MEDS: SODIUM CHLORIDE 1 GRAM TAB PO SCH ×2 (08:35→20:51)
[2017-02-19] MEDS: DOCUSATE SODIUM 100 MG CAP PO SCH ×2 (08:35→20:51)
[2017-02-19 09:34] LABS: BICARBONATE 27.9 MEQ/L (21.0-32.0); CALCIUM 7.8 MG/DL (8.5-10.1); CREATININE 0.36 MG/DL (0.50-1.00)
[2017-02-19] MEDS ORDERED: HOSP BED2 ×2 (11:44→15:40)
[2017-02-19] MEDS ORDERED: COMMODE 3-IN-11 MIS (11:44)
--- NOTE | 2017-02-19 11:45 | HHI.DCPOC ---
Discharge Care Plan Diagnosis: (1) Dementia (2) Urine retention (3) Acute hyponatremia Goals to Promote Your Health * To prevent worsening of your condition and complications * To maintain your health at the optimal level Directions to Meet Your Goals Take your medications as prescribed Follow your dietary instruction Follow activity as directed Keep your appointments as scheduled Take your immunizations and boosters as scheduled If your symptoms worsen call your PCP, if no PCP go to Urgent Care Center or Emergency Room Smoking is Dangerous to Your Health. Avoid second hand smoke Call the 24-hour hour crisis hotline for domestic abuse at Mert Cox MD Feb 19, 2017 11:45
[2017-02-19] MEDS ORDERED: LEVA250T14 PO (11:46)
--- NOTE | 2017-02-19 11:48 | HHI.FF ---
Face to Face Verification Diagnosis: (1) Dementia (2) Urine retention (3) Acute hyponatremia (4) Decubital ulcer Physical Therapy Order: Evaluate and Treat Home Health Nursing Order: Medical education Signs/symptoms of disease process Wound care and dressing changes Nursing assessment with vital signs Instructions: .Please cleanse buttock, sacral and coccyx area gently with soap and water, rinse and gently pat dry. Apply a thick layer of calazime barrier cream BID and PRn Leave wound open to air for now. 2.Turn patient every 2 hours and PRN for comfort and offloading of pressure from timo prominences 3. Obtain pressure relieving support surface for patient for in patient use, and for out patient use in home. Additional Information: Patient seen on for evaluation of sacral wound management. Patient was turned to L side with the assistance of Janie TOLLIVER to to reveal denuded, macerated skin with some partial thickness skin loss over sacrum and coccyx area measuring ~7cm x ~5cm x ~<0.1cm. Wound appears to have mixed etiology of moisture, pressure and friction. Wound is classified as a stage 2 pressure injury.. Periwound presents with blanchable erythema and denuded skin. Due to loose stools, recommend to leave wound open to air at this time and apply thick layer of calazime barrier cream BID and PRN. Please keep patient off of sacrum. I have seen patient Raquel Pineda on 02/19/17. My clinical findings support the need for the requested home health care services because: Limited ability to care for self I certify that my clinical findings support that this patient is homebound because: Impaired cognitive ability/safety Mert Cox MD Feb 19, 2017 11:48
--- NOTE | 2017-02-19 11:50 | HHI.PR ---
Subjective Remarks family present. say she is doing better and getting back to baseline. they would like her pressure ulcer addressed today and c with medical equipment arranged. Objective Vitals nad lying in bed peacefully Vital Signs Date Time Temp Pulse Resp B/P (MAP) Pulse Ox O2 Delivery O2 Flow Rate FiO2 02/19/17 08:34 97.4 52 18 104/59 (74) 96 02/19/17 07:41 64 02/19/17 06:33 98.6 56 18 103/56 (72) 96 02/19/17 02:08 97.4 61 18 114/54 (74) 94 02/18/17 21:17 97.5 64 18 96/55 (69) 96 02/18/17 16:07 97.4 60 18 105/55 (72) 97 02/18/17 15:00 68 02/18/17 12:04 97.9 58 18 89/53 (65) 97 Result Diagram: 02/17/17 1125 02/19/17 0725 A/P Problem List: (1) Acute hyponatremia ICD Codes: E87.1 - Hypo-osmolality and hyponatremia Status: Acute Plan: 1. acute delirium superimposed upon severe dementia 2. hyponatremia. probably related to volume depletion 3. urine retention 1L in 09/24...tapia placed at that time . I spoke to daughter and she says they follow with Dr [facility] and get tapia changed each month. 4. fecal impaction was noted in 09/24...probably causing urine retention. daughter says she deals with chronic constipation multiple bm's here with laxatives. addendum: called by RN. stage 2 coccyx pressure ulcer. chronic appearing and family was aware. tapia changed urine cx noted ask wound care team for pressure ulcer reccs for d/c arrange hhc will d/c her in morning they will f/u with pcp and there urologist who is managing the tapia (2) Altered mental status ICD Codes: R41.82 - Altered mental status, unspecified Status: Acute (3) Urine retention ICD Codes: R33.9 - Retention of urine, unspecified Status: Chronic (4) Dementia ICD Codes: F03.90 - Unspecified dementia without behavioral disturbance Status: Chronic Problem Qualifiers (1) Altered mental status: Qualified Codes: R41.82 - Altered mental status, unspecified Brooke,Mert L MD Feb 19, 2017 11:50
--- NOTE | 2017-02-19 15:27 | PD.WCN.NOT ---
Wound Consult Description: Received consult from Doctor Cox for wound management of sacral decubitus Communicated with: SHAREE reed and call placed to Doctor Brooke for orders Recommendation: 1.Please cleanse buttock, sacral and coccyx are gently with soap and water, rinse and gently pat dry. Apply a thick layer of calazime barrier cream BID and PRn Leave wound open to air for now. 2.Turn patient every 2 hours and PRN for comfort and offloading of pressure from timo prominences 3. Obtain pressure relieving support surface for patient for in patient use, and for out patient use in home. Additional Information: Patient seen on for evaluation of sacral wound management. Patient was turned to L side with the assistance of Janie reed to to reveal denuded, macerated skin with some partial thickness skin loss over sacrum and coccyx area measuring ~7cm x ~5cm x ~<0.1cm. Wound appears to have mixed etiology of moisture, pressure and friction. Wound is classified as a stage 2 pressure injury.Per RN patient has been having loose stools. Periwound presents with blanchable erythema and denuded skin. Due to loose stools, recommend to leave wound open to air at this time and apply thick layer of calazime barrier cream BID and PRN. Please keep patient off of sacrum. Eli Joseph [facility] Feb 19, 2017 15:27
[2017-02-19] MEDS: LEVOFLOXACIN 250 MG PREMIX INJ 50 ML IV SCH (20:50)
[2017-02-19] MEDS: SODIUM CHLOR 0.9% 1000 ML INJ 1,000 ML IV SCH (20:57)
[2017-02-20] VITALS: BP 126/57; PULSE 58; PULSE 62; RESP 18; TEMP 98.1; O2SAT 96
[2017-02-20 04:00] VITALS: PULSE 49
[2017-02-20 05:46] VITALS: BP 113/61; PULSE 50; RESP 18; TEMP 97.3; O2SAT 99
[2017-02-20 08:00] VITALS: BP 110/59; PULSE 52; RESP 16; TEMP 97.3; O2SAT 100
[2017-02-20] MEDS: SODIUM CHLORIDE 1 GRAM TAB PO SCH (08:03)
[2017-02-20] MEDS: DOCUSATE SODIUM 100 MG CAP PO SCH (08:03)
== END 2017-02-20 09:54 | disposition home health service (06) | DRG 641 ==
LOC: NEDAMB 10:11 → NEDA 14:01 → N05A 16:45
PROVIDERS: ADMIT Hospitalist; ATTEND Hospitalist
DX: E87.1 Hypo-osmolality and hyponatremia (principal); E86.9 Volume depletion, unspecified; L89.152 Pressure ulcer of sacral region, stage 2; F03.90 Unspecified dementia, unspecified severity, without behavioral disturbance, psychotic disturbance, mood disturbance, and anxiety; R33.9 Retention of urine, unspecified; Z90.710 Acquired absence of both cervix and uterus
CPT/HCPCS: 70450; 74018; 80048; 80053; 81001; 83605; 84295; 84300; 85025; 86403; 87040; 87086; 87205; 96360; J1956; J7030; J7040